=== PATIENT | female | born 1985 | race Two or more races ===

== ENCOUNTER → 2016-03-21 | Outpatient (REF) | payer OTHER ==
[~2016-03-21] MED LIST: ACET50TA PO; ANUS2.5C2 EXT; DOCU10ELUD PO; IBUP600T26 PO; MOM30SS PO; MULTTAB20 PO
== END ==
LOC: M SFHCLERA 19:08
PROVIDERS: ATTEND Nurse Practitioner Family
DX: J02.9 Acute pharyngitis, unspecified (principal)